=== PATIENT | male | born 1970 ===

== ENCOUNTER 2024-11-12 21:00 | Inpatient (IN) | payer OTHER ==
[~2024-11-12] VITALS: Ht 180.3 cm; Wt 91.4 kg
[2024-11-12 21:43] LABS: PLATELET COUNT (AUTO) 215 K/uL (150-450); RED BLOOD CELL COUNT(AUTO) 4.40 MIL/uL (4.50-5.90); RED CELL DISTRIBUTION WIDTH 14.4 % (11.5-14.5); WHITE BLOOD COUNT (AUTO) 7.8 K/uL (4.5-11.0)
[2024-11-12 21:47] LABS: ALCOHOL, BLOOD (SERUM) < 3 mg/dL (0-10); CALCIUM, TOTAL 9.5 mg/dL (8.8-10.5); CREATININE 1.14 mg/dL (0.60-1.30); GLOMERULAR FILTR. RATE CALC > 60 mL/min (>60); GLUCOSE,RANDOM 116 mg/dL (70-110); SODIUM SERUM 139 mmol/L (136-145); UREA NITROGEN, BLOOD 25 mg/dL (7-18)
[2024-11-12 21:53] LABS: TROPONIN I-HIGH SENSITIVITY 66 ng/L (<76)
[2024-11-12 21:59] LABS: ASPARTATE AMINOTRANSFERASE 164 U/L (15-37); TOTAL PROTEIN, SERUM 8.1 g/dL (6.4-8.2)
[2024-11-12 22:15] LABS: APPEARANCE,URINE CLEAR (CLEAR); GLUCOSE, URINE (UA) NEGATIVE (NEGATIVE); LEUKOCYTE ESTERASE ,URINE NEGATIVE (NEGATIVE); NITRATE,URINE NEGATIVE (NEGATIVE); OCCULT BLOOD,URINE SMALL (NEGATIVE); PH,URINE DRUG SCREEN 5.5 (5.0-8.0); SPECIFIC GRAVITIY, URINE 1.023 (1.003-1.030)
[2024-11-12 22:21] LABS: ALCOHOL, URINE DRUG SCREEN NEGATIVE (NEGATIVE); AMPHET/METH SCREEN,URINE NEGATIVE (NEGATIVE); BARBITURATE SCREEN, URINE NEGATIVE (NEGATIVE); CANNABINOID SCREEN,URINE NEGATIVE (NEGATIVE); COCAINE SCREEN,URINE NEGATIVE (NEGATIVE); METHADONE SCREEN, URINE NEGATIVE (NEGATIVE)
[2024-11-12 22:23] LABS: SQUAMOUS EPITHELIAL CELL,UR Rare /LPF (None Seen)
[2024-11-12] MEDS: LORazepam 2 MG/ML VIAL IVP ONE (22:40)
[2024-11-12] MEDS: SODIUM CHLORIDE 0.9% 1,000 ML IV ONE (23:00)
[2024-11-13] MEDS ORDERED: MIDAZOLAM HCL 2 MG/2 ML VIAL ONE (00:13)
[2024-11-13] MEDS: MIDAZOLAM HCL 2 MG/2 ML VIAL IVP ONE ×2 (00:30→04:27)
[2024-11-13] MEDS: MIDAZOLAM HCL 100 MG in SODIUM CHLORIDE 0.9% 180 ML IV PRN (00:44)
[2024-11-13] MEDS ORDERED: MORPHINE SULFATE 2 MG/ML SYRINGE IVP PRN (01:45)
[2024-11-13] MEDS ORDERED: MAGNESIUM HYDROXIDE SUSPENSION 30 ML UDCUP PO PRN (01:45)
[2024-11-13] MEDS ORDERED: BISACODYL 10 MG RECTAL RECTAL SUPPOSITORY PR PRN (01:45)
[2024-11-13] MEDS ORDERED: ZOLPIDEM TARTRATE 5 MG TABLET PO PRN (01:45)
[2024-11-13] MEDS ORDERED: ONDANSETRON HCL 4 MG/2 ML VIAL IVP PRN (01:45)
[2024-11-13] MEDS ORDERED: DEXMEDETOMIDINE 400 MCG/NS 100 ML IV ONE (06:07)
[2024-11-13] MEDS: DEXMEDETOMIDINE 400 MCG/NS 100 ML IV PRN ×2 (06:08→19:01)
[2024-11-13 06:54] LABS: CALCIUM, TOTAL 8.7 mg/dL (8.8-10.5); CREATININE 0.79 mg/dL (0.60-1.30); GLOMERULAR FILTR. RATE CALC > 60 mL/min (>60); GLUCOSE,RANDOM 86 mg/dL (70-110); SODIUM SERUM 142 mmol/L (136-145); UREA NITROGEN, BLOOD 15 mg/dL (7-18)
[2024-11-13 08:00] VITALS: BP 146/95; PULSE 92; RESP 15; TEMP 99.5; O2SAT 95
[2024-11-13] MEDS: HEPARIN SODIUM,PORCINE 5,000 UNITS/ML VIAL SQ SCH (08:17)
[2024-11-13] MEDS: DOCUSATE SODIUM 100 MG CAPSULE PO SCH (08:18)
[2024-11-13] MEDS: PANTOPRAZOLE SODIUM 40 MG DR TABLET PO SCH (08:19)
[2024-11-13] MEDS ORDERED: MAGNESIUM OXIDE 400 MG TABLET PO PRN (10:15)
[2024-11-13] MEDS ORDERED: MAGNESIUM SULFATE 4 GM/WATER 100 ML IV PRN (10:15)
[2024-11-13] MEDS ORDERED: POTASSIUM CHL 10 MEQ/WATER 50 ML IV PRN (10:15)
[2024-11-13] MEDS ORDERED: POTASSIUM CHLORIDE 20 MEQ ER TABLET PO PRN (10:15)
[2024-11-13] MEDS ORDERED: SODIUM CHLORIDE 0.9% 250 ML IV ONE (10:23)
[2024-11-13] MEDS: POTASSIUM CHL 10 MEQ/WATER 50 ML IV PRN (10:25)
[2024-11-13 12:00] VITALS: BP 145/69; PULSE 80; RESP 15; TEMP 98.1; O2SAT 94
[2024-11-13 16:00] VITALS: BP 115/85; PULSE 70; RESP 15; TEMP 98.4; O2SAT 96
[2024-11-13 20:00] VITALS: BP 115/86; PULSE 65; PULSE 69; RESP 15; TEMP 98.8; O2SAT 94
[2024-11-14] VITALS (7 sets, daily range): BP systolic 105–164; BP diastolic 70–97; PULSE 60–80; RESP 14–22; TEMP 98.1–98.6; O2SAT 95–100
[2024-11-14] MEDS: ACETAMINOPHEN 325 MG TABLET PO PRN (04:33)
[2024-11-14 05:48] LABS: CALCIUM, TOTAL 9.1 mg/dL (8.8-10.5); CREATININE 0.76 mg/dL (0.60-1.30); GLOMERULAR FILTR. RATE CALC > 60 mL/min (>60); GLUCOSE,RANDOM 110 mg/dL (70-110); PLATELET COUNT (AUTO) 190 K/uL (150-450); RED BLOOD CELL COUNT(AUTO) 4.74 MIL/uL (4.50-5.90); RED CELL DISTRIBUTION WIDTH 14.2 % (11.5-14.5); SODIUM SERUM 139 mmol/L (136-145); UREA NITROGEN, BLOOD 16 mg/dL (7-18); WHITE BLOOD COUNT (AUTO) 5.8 K/uL (4.5-11.0)
[2024-11-14] MEDS: POTASSIUM CHLORIDE 20 MEQ ER TABLET PO PRN (06:07)
[2024-11-14] MEDS: HYDROCODONE/ACETAMINOPHEN 5-325 MG TABLET PO PRN (11:27)
[2024-11-14] MEDS ORDERED: SODIUM BICARBONATE [ADULT] 8.4% 50 MEQ/50 ML SYRINGE IVP PRN (21:30)
[2024-11-14] MEDS ORDERED: MAGNESIUM SULFATE 2 GM/WATER 50 ML IV PRN (21:30)
[2024-11-14] MEDS: MAGNESIUM SULFATE 2 GM/WATER 50 ML IV PRN (23:21)
[2024-11-15] VITALS (7 sets, daily range): BP systolic 115–153; BP diastolic 76–93; PULSE 77–86; RESP 18–19; TEMP 98.4–99.2; O2SAT 97–100
[2024-11-15 06:32] LABS: PLATELET COUNT (AUTO) 205 K/uL (150-450); RED BLOOD CELL COUNT(AUTO) 4.23 MIL/uL (4.50-5.90); RED CELL DISTRIBUTION WIDTH 14.2 % (11.5-14.5); WHITE BLOOD COUNT (AUTO) 4.5 K/uL (4.5-11.0)
[2024-11-15 06:41] LABS: GLUCOMETER DEV NAME(LOC) ICUN.6; GLUCOSE,POINT OF CARE 233 MG/DL (70-110)
[2024-11-15 06:44] LABS: SODIUM SERUM 138 mmol/L (136-145)
[2024-11-15 06:52] LABS: CALCIUM, TOTAL 8.9 mg/dL (8.8-10.5); CREATININE 0.78 mg/dL (0.60-1.30); GLOMERULAR FILTR. RATE CALC > 60 mL/min (>60); GLUCOSE,RANDOM 101 mg/dL (70-110); UREA NITROGEN, BLOOD 10 mg/dL (7-18)
[2024-11-16 03:19] VITALS: BP 155/97; PULSE 75; RESP 18; TEMP 98.4; O2SAT 99
[2024-11-16 07:13] LABS: PLATELET COUNT (AUTO) 205 K/uL (150-450); RED BLOOD CELL COUNT(AUTO) 4.12 MIL/uL (4.50-5.90); RED CELL DISTRIBUTION WIDTH 14.0 % (11.5-14.5); WHITE BLOOD COUNT (AUTO) 3.6 K/uL (4.5-11.0)
[2024-11-16 07:26] LABS: CALCIUM, TOTAL 8.8 mg/dL (8.8-10.5); CREATININE 0.63 mg/dL (0.60-1.30); GLOMERULAR FILTR. RATE CALC > 60 mL/min (>60); GLUCOSE,RANDOM 109 mg/dL (70-110); SODIUM SERUM 139 mmol/L (136-145); UREA NITROGEN, BLOOD 9 mg/dL (7-18)
[2024-11-16] MEDS ORDERED: MAGNESIUM OXIDE 400 MG TABLET PO PRN (07:45)
[2024-11-16] MEDS ORDERED: MAGNESIUM SULFATE 2 GM/WATER 50 ML IV PRN (07:45)
[2024-11-16] MEDS ORDERED: MAGNESIUM SULFATE 4 GM/WATER 100 ML IV PRN (07:45)
[2024-11-16 07:53] VITALS: BP 144/96; PULSE 80; RESP 17; TEMP 99.1; O2SAT 99
[2024-11-16 08:02] LABS: RBC MORPHOLOGY COMMENT NORMAL RBC MORPH
[2024-11-16 11:46] VITALS: BP 166/94; PULSE 73; RESP 19; TEMP 98.2; O2SAT 98
[2024-11-16 15:56] VITALS: BP 137/94; PULSE 77; RESP 17; TEMP 98.2; O2SAT 97
[2024-11-16 20:05] VITALS: BP 117/83; PULSE 77; RESP 19; TEMP 98.2; O2SAT 97
[2024-11-16 20:52] VITALS: BP 129/88; PULSE 71; RESP 18; TEMP 97.6; O2SAT 97
[2024-11-17 05:54] VITALS: BP 143/90; PULSE 77; RESP 19; TEMP 97.7; O2SAT 100
[2024-11-17 05:57] LABS: PLATELET COUNT (AUTO) 214 K/uL (150-450); RED BLOOD CELL COUNT(AUTO) 4.30 MIL/uL (4.50-5.90); RED CELL DISTRIBUTION WIDTH 14.1 % (11.5-14.5); WHITE BLOOD COUNT (AUTO) 3.8 K/uL (4.5-11.0)
[2024-11-17 06:09] LABS: CALCIUM, TOTAL 9.1 mg/dL (8.8-10.5); CREATININE 0.60 mg/dL (0.60-1.30); GLOMERULAR FILTR. RATE CALC > 60 mL/min (>60); GLUCOSE,RANDOM 114 mg/dL (70-110); SODIUM SERUM 140 mmol/L (136-145); UREA NITROGEN, BLOOD 9 mg/dL (7-18)
[2024-11-17 08:12] VITALS: BP 145/92; PULSE 78; RESP 18; TEMP 98.1; O2SAT 100
[2024-11-17] MEDS ORDERED: SODIUM CHLORIDE 0.9% 500 ML IV ONE (09:31)
[2024-11-17] MEDS ORDERED: AMLO-258 PO (13:42)
[2024-11-17] MEDS ORDERED: ACET-2247 PO (13:43)
== END 2024-11-17 15:05 | DRG 92 ==
LOC: EMS 21:00 → EDH 11-13 01:42 → ICU 11-13 05:45 → 5S 11-15 09:30 → 6N 11-16 20:40
PROVIDERS: ADMIT Internal Medicine; ATTEND Internal Medicine
DX: G92.8 Other toxic encephalopathy (principal); F10.139 Alcohol abuse with withdrawal, unspecified; M62.82 Rhabdomyolysis; S60.812A Abrasion of left wrist, initial encounter; E11.9 Type 2 diabetes mellitus without complications; E87.6 Hypokalemia; I10 Essential (primary) hypertension; F29 Unspecified psychosis not due to a substance or known physiological condition; Y90.9 Presence of alcohol in blood, level not specified; X58.XXXA Exposure to other specified factors, initial encounter; Y93.89 Activity, other specified; Y92.89 Other specified places as the place of occurrence of the external cause; Y99.8 Other external cause status; Z79.899 Other long term (current) drug therapy
CPT/HCPCS: 71045; 71250; 74176; 80048; 80053; 80307; 81001; 82040; 82140; 82550; 82962; 83735; 84132; 84443; 84484; 85025; 87081; 93005; 97162; 99291; G0480; G0481; J1644; J2060; J2250; J3475; J3480; J7040; J7050; 36415-L1; 36415-TC